=== PATIENT | female | born 1960 | race Hispanic/Latino ===

== ENCOUNTER 2017-07-30 11:37 | Emergency (ER) | payer MEDICARE ==
[2017-07-30 11:40] VITALS: BMI 39.9
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
[2017-07-30] MEDS ORDERED: Sodium Chloride 0.9% 500 ML IV STA (12:19)
[2017-07-30] MEDS ORDERED: Dexamethasone elixir 0.5 MG/5 ML UDC PO ONE (12:19)
[2017-07-30 12:46] LABS: URINE BILIRUBIN NEGATIVE (NEGATIVE); URINE BLOOD NEGATIVE (NEGATIVE); URINE GLUCOSE (UA) NEGATIVE (NEGATIVE); URINE LEUKOCYTE ESTERASE NEGATIVE Leu/uL (NEGATIVE); URINE PROTEIN NEGATIVE mg/dL (<30 mg/dL); URINE UROBILINOGEN 0.2 E.U./dL (<1 E.U./dL)
--- NOTE | 2017-07-30 12:55 | RAD ---
HISTORY: 56yoF, sob COMPARISON: 12/29/2016 FINDINGS: LUNGS: No active pulmonary disease. PLEURA: No significant pleural effusion identified, no pneumothorax apparent. CARDIOVASCULAR: Normal. OSSEOUS STRUCTURES: No significant abnormalities. VISUALIZED UPPER ABDOMEN: Normal. OTHER FINDINGS: None. IMPRESSION: No active disease.
[2017-07-30 13:04] LABS: BASO # 0.03 K/mm3 (0.0-2.0); BASO % 0.3 % (0.0-3.0); EOS # 0.2 (0.0-0.7); EOS % 1.3 % (1.5-5.0); GRAN # 10.01 (1.4-6.5); GRAN % 85.5 % (50.0-68.0); HEMOGLOBIN 11.5 g/dL (12.0-16.0); LYMPH # 0.8 (1.2-3.4); LYMPH % 6.7 % (22.0-35.0); MEAN CELL VOLUME 94.5 fl (80.0-105.0); MEAN CORPUSCULAR HEMOGLOBIN 31.8 pg (25.0-35.0); MEAN CORPUSCULAR HGB CONC 33.6 g/dl (31.0-37.0); MEAN PLATELET VOLUME 9.7 fl (7.0-11.0); MONO # 0.7 (0.1-0.6); MONO % 6.2 % (1.0-6.0); RBC 3.62 10^6/uL (3.5-6.1); RED CELL DISTRIBUTION WIDTH 16.8 % (11.5-14.5); WHITE BLOOD COUNT 11.7 10^3/ul (4.5-11.0)
[2017-07-30 13:06] LABS: URINE APPEARANCE CLEAR (CLEAR); URINE COLOR LIGHT YELLOW (YELLOW)
[2017-07-30 13:15] LABS: ALT/SGPT 49 U/L (7-56); AST/SGOT 39 U/L (14-36); BLOOD UREA NITROGEN 24 mg/dL (7-21); CALCIUM 10.5 mg/dL (8.4-10.5); GFR AFRICAN-AMERICAN 56; GFR NON-AFRICAN AMERICAN 46
[2017-07-30 13:17] LABS: INR 1.03 (0.93-1.08); PARTIAL THROMBOPLASTIN TIME 27.7 Seconds (25.1-36.5); PROTHROMBIN TIME 11.9 SECONDS (9.4-12.5)
[2017-07-30 13:24] LABS: B-TYPE NATRIURETIC PEPTIDE 569 pg/mL (0-450); TROPONIN I < 0.01 ng/mL
[2017-07-30] MEDS ORDERED: Magnesium Sulfate 1 gm in D5W 1 GM/100 ML BAG IVPB ONE ×2 (13:38→14:45)
[2017-07-30] MEDS ORDERED: Iohexol 350 MG/100 ML VIAL ONE (13:44)
[2017-07-30 13:45] VITALS: RESP 18
--- NOTE | 2017-07-30 14:40 | CT ---
PROCEDURE: CT Chest with contrast (Pulmonary Angiogram) HISTORY: 56F, with sob, rule out PE. COMPARISON: Plain radiograph performed earlier the same day. TECHNIQUE: Axial computed tomography images were obtained of the chest in the pulmonary arterial phase of enhancement. Coronal and sagittal reformatted images were created and reviewed. Intravenous contrast dose: 100 mL Omnipaque 350 Radiation dose: Total exam DLP = 476.07 mGy-cm. This CT exam was performed using one or more of the following dose reduction techniques: Automated exposure control, adjustment of the mA and/or kV according to patient size, and/or use of iterative reconstruction technique. FINDINGS: PULMONARY ARTERIES: Examination is of suboptimal diagnostic quality for evaluation of pulmonary embolism due to missed bolus. Allowing for this, there are no large filling defects in the central pulmonary arteries. Linear filling defects in the main pulmonary artery extending into the left pulmonary artery are likely artifactual. AORTA: No acute findings. No thoracic aortic aneurysm. LUNGS: The lungs are clear. No nodule, mass or pulmonary consolidation. There is subsegmental atelectasis in the right lower lobe. PLEURAL SPACES: There is a small right pleural effusion. There is trace left pleural effusion. No pneumothorax. HEART: There is mild cardiomegaly. No significant pericardial effusion. LYMPH NODES: No in size pathologic mediastinal or hilar lymphadenopathy. BONES, CHEST WALL: No fracture or destructive lesion there is diffuse bone demineralization and mild multilevel degenerative disc disease. OTHER FINDINGS: Both adrenal glands are normal in size. There fatty infiltration in the liver. There is mild splenomegaly. IMPRESSION: 1. Suboptimal diagnostic quality due to missed bolus. Allowing for this, no CTA evidence for large central acute pulmonary embolism. 2. No consolidation or pneumothorax. 3. Mild cardiomegaly, small right and trace left pleural effusions. 4. Fatty liver. Mild splenomegaly.
[2017-07-30 15:16] VITALS: BP 130/73; PULSE 95; TEMP 98.4; O2SAT 96
--- NOTE | 2017-07-30 23:48 | CARD ---
APPROVED REPORT EKG Measurement Heart [id number] <Conclusion> Sinus tachycardia Possible Left atrial enlargement Left ventricular hypertrophy with repolarization abnormality Abnormal ECG
== END 2017-07-30 16:30 | disposition left against medical advice (07) ==
LOC: ED 11:37
DX: R06.02 Shortness of breath (principal); I10 Essential (primary) hypertension; E11.9 Type 2 diabetes mellitus without complications
CPT/HCPCS: 71045; 71275; 80053; 81003; 82550; 83615; 83735; 83880; 84484; 85025; 85378; 85610; 85730; 87070; 87086; 87430; 87804; 93005; 99285; J7040; Q9967

== ENCOUNTER 2018-05-05 23:56 | Emergency (ER) | payer MEDICARE ==
[2018-05-05 23:57] VITALS: BMI 39.9
[2018-05-06] MEDS ORDERED: DiphenhydrAMINE 50 mg/ml Inj IVP ONE (00:07)
[2018-05-06 00:13] VITALS: PULSE 76; RESP 18
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
[2018-05-06 02:03] VITALS: BP 128/78; TEMP 98.2; O2SAT 99
== END 2018-05-06 02:04 | disposition home or self-care (01) ==
LOC: ED 23:56
DX: L50.9 Urticaria, unspecified (principal); T78.40XA Allergy, unspecified, initial encounter; E11.9 Type 2 diabetes mellitus without complications; E78.5 Hyperlipidemia, unspecified; I10 Essential (primary) hypertension; M06.9 Rheumatoid arthritis, unspecified
CPT/HCPCS: 96374; 96375; 99282; J1200; J2930

== ENCOUNTER 2018-05-26 18:44 | Emergency (ER) | payer MEDICARE ==
[2018-05-26 18:59] VITALS: BMI 40.0
[2018-05-26 19:01] VITALS: RESP 18; TEMP 98.7
[2018-05-26] MEDS ORDERED: TDAP Vaccine 0.5 mL Syr IM ONE (19:38)
[2018-05-26] MEDS ORDERED: Bacitracin 500 Units/gm Oint Foilpak UD TOP ONE (19:51)
[2018-05-26] MEDS ORDERED: Lidocaine 1% Inj (20ml) IJ STA (19:51)
[2018-05-26] MEDS ORDERED: Tmp-Smz 800 mg-160 mg DS Tab PO STA (19:54)
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
[2018-05-26 21:31] VITALS: BP 130/84; PULSE 85; O2SAT 100
== END 2018-05-26 21:30 | disposition home or self-care (01) ==
LOC: ED 18:44
DX: S01.551A Open bite of lip, initial encounter (principal); W54.0XXA Bitten by dog, initial encounter; Z23 Encounter for immunization; E11.9 Type 2 diabetes mellitus without complications; I10 Essential (primary) hypertension; M06.9 Rheumatoid arthritis, unspecified

== ENCOUNTER 2018-05-31 13:55 | Emergency (ER) | payer MEDICARE ==
[2018-05-31 13:56] VITALS: BMI 40.0
[2018-05-31 14:08] VITALS: TEMP 98.6
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
[2018-05-31 14:53] VITALS: BP 118/68; PULSE 82; RESP 18; O2SAT 98
== END 2018-05-31 14:54 | disposition home or self-care (01) ==
LOC: ED 13:55
DX: Z48.02 Encounter for removal of sutures (principal)

== ENCOUNTER 2018-06-12 12:00 | Outpatient (CLI) | payer MEDICARE | END 2018-06-12 12:01 | disposition home or self-care (01) | LOC: RAD 12:00 ==

== ENCOUNTER 2018-06-18 08:28 | Outpatient (CLI) | payer MEDICARE | END 2018-06-18 08:29 | disposition home or self-care (01) | LOC: RAD 08:28 | DX: R19.4 Change in bowel habit (principal); K59.09 Other constipation ==